=== PATIENT | male | born 1950 | race Caucasian/White ===

== ENCOUNTER 2016-09-01 10:26 | Day surgery (SDC) | payer BC, MEDICARE ==
[~2016-09-01 10:26] MED LIST: Buffered Lidocaine 1% SYR 3ML* 3 ML/SYR SYRINGE INTRADERM ONE; Cyclopentolate 1% OPTH.SOL* 2 ML BTL ONE; Flurbiprofen 0.03% OPTH.SOL* 2.5 ML BTL ONE; Lidocaine 1% MPF* 2 ML VIAL ONE; Lidocaine 2% EPI 1:200000 MPF* 20 ML VIAL ONE; Neomycin/Polymy/Dex OPTH.SUSP* MAXITROL 0.1% 5 ML ONE; Phenylephrine 2.5% OPTH.SOL* 2 ML BTL ONE; Povidone Iodine 5% OPTH* 30 ML BTL ONE; Proparacaine 0.5% OPHTH.SOL* 15 ML BTL ONE; acetaZOLAMIDE TAB* 250 MG ONE
[2016-09-01] MEDS ORDERED: Midazolam* 1 MG/ML 2 ML VIAL (2 MG) ONE ×2 (13:56→13:59)
[2016-09-01 15:13] VITALS: BP 139/58
--- NOTE | 2016-09-02 04:27 | OP ---
DATE OF OPERATION: 09/01/16 [facility] DATE OF : 46 SURGEON: Fredrick Benedict MD PREOPERATIVE DIAGNOSIS: Cataract, right eye. POSTOPERATIVE DIAGNOSIS: Cataract, right eye. OPERATIVE PROCEDURE: Phacoemulsification, right eye with IOL. DESCRIPTION OF PROCEDURE: The patient was brought to the operating room after being given 1/2% Alcaine with epinephrine drops in the preoperative area. The eye was prepped and draped in the usual sterile fashion. Sterile drape and eyelid speculum were placed. Again, topical 1/2% Alcaine with epinephrine was given. A paracentesis incision was made at the 9 o'clock position with the No.75 blade. Clear cornea incision 2.2 x 2.2-mm was created at the 12 o'clock position starting at the anterior limbus using the 2.2-mm keratome. The anterior chamber was irrigated with 0.4 mL of 1% non-preservative intracameral lidocaine and filled with DisCoVisc. A capsulorrhexis was completed using the cystotome and the Utrata forceps. Hydrodissection was performed with balanced salt solution. The lens nucleus was removed with the Phacoemulsification handpiece without incident. Cortex was removed with the irrigation-aspiration handpiece. The capsular bag was re-inflated using DisCoVisc and an [id number] implant was inserted with the shooter and oriented to the 179-degree meridian. Horizontal reference reilly were made with the patient in the preoperative area in a seated position. The irrigation-aspiration handpiece was used to remove all residual DisCoVisc. The eye was refilled with balanced salt solution and the wound checked and found to be watertight. Topical Maxitrol drops were given. [id number]/[facility] #: [id number] MTDD
== END 2016-09-01 14:32 | disposition home or self-care (01) ==
LOC: OREAST 10:26
PROVIDERS: ATTEND Specialist
DX: H25.12 Age-related nuclear cataract, left eye (principal); E11.3293 Type 2 diabetes mellitus with mild nonproliferative diabetic retinopathy without macular edema, bilateral; Z79.4 Long term (current) use of insulin; Z87.891 Personal history of nicotine dependence; J45.909 Unspecified asthma, uncomplicated; Z68.34 Body mass index [BMI] 34.0-34.9, adult
CPT/HCPCS: A9270-GY; J2250; V2787

== ENCOUNTER → 2016-09-22 06:45 | Day surgery (SDC) | payer BC, MEDICARE ==
[~2016-09-22 06:45] MED LIST changes: +Acetaminophen TAB* 325 MG PO PRN; -Buffered Lidocaine 1% SYR 3ML* 3 ML/SYR SYRINGE INTRADERM ONE; +Buffered Lidocaine 1% SYRIN* 3 ML/SYR SYRINGE INTRADERM ONE; +Midazolam* 1 MG/ML 2 ML VIAL (2 MG) ONE
[2016-09-22 09:02] VITALS: BP 133/60
--- NOTE | 2016-09-22 16:18 | OP ---
DATE OF OPERATION: 09/22/16 [facility] DATE OF : 46 SURGEON: Fredrick Benedict M.D. PREOPERATIVE DIAGNOSIS: Cataract, left eye. POSTOPERATIVE DIAGNOSIS: Cataract, left eye. OPERATIVE PROCEDURE: Phacoemulsification, left eye with IOL. DESCRIPTION OF PROCEDURE: The patient was brought to the operating room after being given 1/2% Alcaine with epinephrine drops in the preoperative area. The eye was prepped and draped in the usual sterile fashion. Sterile drape and eyelid speculum were placed. Again, topical 1/2% Alcaine with epinephrine was given. A paracentesis incision was made at the 3 o'clock position with the No.75 blade. Clear cornea incision 2.2 x 2.2-mm was created at the 6 o'clock position starting at the anterior limbus using the 2.2-mm keratome. The anterior chamber was irrigated with 0.4 mL of 1% non-preservative intracameral lidocaine and filled with DisCoVisc. A capsulorrhexis was completed using the cystotome and the Utrata forceps. Hydrodissection was performed with balanced salt solution. The lens nucleus was removed with the Phacoemulsification handpiece without incident. Cortex was removed with the irrigation-aspiration handpiece. The capsular bag was re-inflated using DisCoVisc and an [id number] implant was inserted with the shooter oriented to the 0-degree meridian. The irrigation-aspiration handpiece was used to remove all residual DisCoVisc. The eye was refilled with balanced salt solution and the wound checked and found to be watertight. Topical Maxitrol drops were given. [id number]/[facility] #: [id number] [facility]
== END | disposition home or self-care (01) ==
LOC: OREAST 06:45
PROVIDERS: ATTEND Specialist
DX: H25.12 Age-related nuclear cataract, left eye (principal); E11.3293 Type 2 diabetes mellitus with mild nonproliferative diabetic retinopathy without macular edema, bilateral; Z87.891 Personal history of nicotine dependence; I10 Essential (primary) hypertension; R00.2 Palpitations; J45.909 Unspecified asthma, uncomplicated; G47.33 Obstructive sleep apnea (adult) (pediatric)
CPT/HCPCS: 36415; 86803; J2250; V2787

== ENCOUNTER 2016-10-07 12:21 | Emergency (ER) | payer BC, MEDICARE ==
[2016-10-07 13:17] VITALS: BP 156/67
[2016-10-07] MEDS ORDERED: DOXYcycline CAP(*) 100 MG PO ONE (13:27)
--- NOTE | 2016-10-07 13:35 | UC ---
Skin Complaint HPI - HPI Summary HPI Summary: Noticed spot on LUE near axilla 2 days ago, today realized it was a tick and poured H2O2 on it. Slight redness around. - History of Current Complaint Hx Obtained From: Patient Onset/Duration: Gradual Onset, Lasting Days Timing: Constant Onset Severity: Mild Current Severity: Mild Location: Discrete Character: Redness Aggravating: Nothing Alleviating: Nothing Related History: Possible Reaction to: Insect <Mary Johnson - Last Filed: 10/07/16 13:30> <Santo Sewell - Last Filed: 10/07/16 13:55> - History of Current Complaint Chief Complaint: UCSkin Time Seen by Provider: 10/07/16 13:20 Stated Complaint: RED AREA ON ARM - Allergy/Home Medications Allergies/Adverse Reactions: Allergies Allergy/AdvReac Type Severity Reaction Status Date / Time Cephalexin [From Keflex] Allergy Itching Verified 09/22/16 06:59 Latex Allergy Rash Verified 09/22/16 06:59 Tomato Allergy Unknown Verified 09/22/16 06:59 Reaction Details hay fever Allergy Unknown Uncoded 09/22/16 06:59 Reaction Details Review of Systems Constitutional: Negative Skin: Other - tick Eyes: Negative ENT: Negative Respiratory: Negative Cardiovascular: Negative Gastrointestinal: Negative Genitourinary: Negative Motor: Negative Neurovascular: Negative Musculoskeletal: Negative Neurological: Negative Psychological: Negative All Other Systems Reviewed And Are Negative: Yes <Mary Johnson - Last Filed: 10/07/16 13:30> PMH/Surg Hx/FS Hx/Imm Hx Endocrine History Of: Reports: Diabetes - type II diagnoses about 15 yrs ago, uses medication Cardiovascular History Of: Reports: Hypertension - uses medication Denies: Pacemaker/ICD, Myocardial Infarction Respiratory History Of: Reports: Asthma - uses medication GI/ History Of: Denies: Renal Disease - Surgical History Surgical History: Yes Surgery Procedure, Year, and Place: 04/30 [facility] [place], [facility] [place], 10/[place] [facility] [place], [facility] [place]URP, 04/05 [facility] [place], 07/08 [facility] [place], previous colonoscopies w/polyp removal- SHAZIA REMOVED-PRECANCEROUS SPOTS ON FOREARM REMOVED. VASECTOMY - Family History Known Family History: Positive: Hypertension - Social History Lives: With Family Alcohol Use: Daily Alcohol Amount: 1 TO 2 DRINKS Substance Use Type: None Smoking Status (MU): Never Smoked Tobacco When Did the Patient Quit Smoking/Using Tobacco: 12/03/78 <Mary Johnson - Last Filed: 10/07/16 13:30> Physical Exam Triage Information Reviewed: Yes Appearance: Well-Appearing, No Pain Distress, Well-Nourished Vital Signs: Initial Vital Signs Temp 97.9 F 10/07/16 13:14 Pulse 67 10/07/16 13:14 Resp 18 10/07/16 13:14 BP 156/67 10/07/16 13:14 Pulse Ox 97 10/07/16 13:14 Vital Signs Reviewed: Yes Eye Exam: Normal Eyes: Positive: Conjunctiva Clear ENT Exam: Normal ENT: Positive: Normal ENT inspection, Hearing grossly normal, Pharynx normal, TMs normal Dental Exam: Normal Neck exam: Normal Neck: Positive: Supple, Nontender, No Lymphadenopathy Respiratory Exam: Normal Respiratory: Positive: Chest non-tender, Lungs clear, Normal breath sounds, No respiratory distress, No accessory muscle use Cardiovascular Exam: Normal Cardiovascular: Positive: RRR, No Murmur Musculoskeletal Exam: Normal Musculoskeletal: Positive: ROM Intact Neurological Exam: Normal Neurological: Positive: Alert Psychological Exam: Normal Skin Exam: Other - partial tick visible, removed with tick twisters. Erythema approx 3cm diameter around typical bite appearance. No streaking. I believe this redness is reactive erythema and not due to early, localized Lyme <Mary Johnson - Last Filed: 10/07/16 13:30> Vital Signs: Initial Vital Signs Temp 97.9 F 10/07/16 13:14 Pulse 67 10/07/16 13:14 Resp 18 10/07/16 13:14 BP 156/67 10/07/16 13:14 Pulse Ox 97 10/07/16 13:14 <Santo Sewell - Last Filed: 10/07/16 13:55> Course/Dx - Diagnoses Provider Diagnoses: L upper arm tick bite, tick removal <Mary Johnson - Last Filed: 10/07/16 13:30> Discharge <Mary Johnson - Last Filed: 10/07/16 13:30> <Santo Sewell - Last Filed: 10/07/16 13:55> - Discharge Plan Condition: Stable Disposition: HOME Patient Education Materials: Tick Bite (ED) Referrals: Raj Lofton MD [Primary Care Provider] - Additional Instructions: As we discussed, if the red area on your arm is still spreading after 48 hours, please get me the message on Tuesday after noon. If it is growing, I will treat you for Lyme infection with 2 weeks of antibiotics. TICK BITE: You have been bitten by a tick. Once the tick is removed, these "bites" usually cause no problems. Tick fever, tick paralysis, [place] Spotted fever, and Lyme disease are uncommon -- but you should mention this tick bite to your doctor if you develop unusual symptoms in the next several weeks. If you develop any of the following, please see your physician promptly: (1) Fever, chills, or generalized malaise associated with a headache. (2) A red round area at the site of the bite (or elsewhere) (3) Joint pain, joint swelling or generalized weakness. (4) Redness, swelling, or drainage at the site of the bite. Check yourself, your children and your pets for ticks whenever you've been in an area where ticks live. To remove a tick, grasp it firmly with some tweezers or a string in a slipknot as close to its head as possible and pull it steadily. Ticks do not have a typical "head" attached to their body. There are mouth parts sticking out which they use to feed. If there are mouth parts left behind in the wound there is NO increased risk of Lyme infection; however, the chances of a bacterial skin infection (cellulitis) are higher. If mouth parts remain after tick removal, the best thing to do is apply warm soaks to the area 3-4 times per day to encourage the skin to expel the foreign material. DOXYCYCLINE: Doxycycline (Vibramycin, Doryx) is an antibiotic of the tetracycline family. This type of drug is useful for infections of the respiratory tract and genital tract, and is sometimes used for intestinal infections. Unlike most tetracyclines, doxycycline can be taken with food. It is longer acting, and (usually) less prone to side effects than regular tetracycline. Tetracycline antibiotics can stain immature teeth and SHOULD NOT BE TAKEN BY CHILDREN, NURSING MOTHERS, OR WOMEN. Tetracyclines can make you more prone to sunburn. Abdominal cramping, nausea, and diarrhea are occasional side effects. Women may experience vaginal yeast infections. Call the doctor at once if you develop hives, itching, shortness of breath , or lightheadedness. WHEN A TICK IS NOT ENGORGED AND HAS BEEN ON LESS THAN 24 HOURS - THE RISK FOR LYME IS NEGLIGIBLE. YOU CAN REMOVE THE TICK AND OBSERVE THE AREA ON YOUR OWN. FOLLOW-UP CARE: You should contact your private physician for follow-up care if you develop spreading redness near the site of the bite or on any other areas of the body. If you are unable to get a timely appointment, or if you are worsening, call us or return for re-evaluation.
== END 2016-10-07 14:00 | disposition home or self-care (01) ==
LOC: UCEAST 12:21
DX: S40.862A Insect bite (nonvenomous) of left upper arm, initial encounter (principal); W57.XXXA Bitten or stung by nonvenomous insect and other nonvenomous arthropods, initial encounter; Y93.9 Activity, unspecified; Y99.9 Unspecified external cause status; E11.9 Type 2 diabetes mellitus without complications; I10 Essential (primary) hypertension; J45.909 Unspecified asthma, uncomplicated; Z88.1 Allergy status to other antibiotic agents; Z91.040 Latex allergy status; Z91.018 Allergy to other foods; Z91.048 Other nonmedicinal substance allergy status
CPT/HCPCS: 99212; A9270-GY; G0463

== ENCOUNTER 2017-05-19 08:55 | Emergency (ER) | payer MEDICARE ==
[2017-05-19 09:12] VITALS: BP 192/90
--- NOTE | 2017-05-19 11:01 | UC ---
Head Injury HPI - HPI Summary HPI Summary: 67 Y/O male presents S/P ground level fall this AM. States was walking and fell face first. Denies LOC. Periorbital bruises, bruising and laceration to bridge of nose. Neurologically intact. Patient with elevated blood pressure 192/90, states has not taken any medications today and does have a diagnosis of HTN. Discussed need to take medications as directed. Denies headache, dizziness, no apparent confusion. Reviewed family history which is significant for heart disease and diabetes. Discussed with Arden need for CT scan of head due to significant periorbital bruising and nasal injury. Advised that transfer via ambulance is advised. Refuses transfer to ED via ambulance but states he will present to ED. AMA form signed. - History Of Current Complaint Chief Complaint: UCLaceration Stated Complaint: NASAL LAC AND INJURY Time Seen by Provider: 05/19/17 09:30 Hx Obtained From: Patient Onset/Duration: Sudden Onset Severity Currently: Mild Severity Initially: Mild Pain Intensity: 3 Pain Scale Used: Adult Non Verbal - Allergies/Home Medications Allergies/Adverse Reactions: Allergies Allergy/AdvReac Type Severity Reaction Status Date / Time Cephalexin [From Keflex] Allergy Itching Verified 05/19/17 09:12 Latex Allergy Rash Verified 05/19/17 09:12 Tomato Allergy Unknown Verified 05/19/17 09:12 Reaction Details hay fever Allergy Unknown Uncoded 05/19/17 09:12 Reaction Details Home Medications: Home Medications Insulin Glargine (Nf) [Toujeo Solostar Pen (NF)] 47 units SUBCON DAILY 05/19/17 [History Confirmed 05/19/17] Losartan TAB* [Cozaar TAB*] 25 mg PO DAILY 05/19/17 [History Confirmed 05/19/17] PMH/Surg Hx/FS Hx/Imm Hx Previously Healthy: Yes Endocrine History: Diabetes Cardiovascular History: Hypertension - Surgical History Surgical History: Yes Surgery Procedure, Year, and Place: 04/30 [facility] [place] bladder tumor, [facility] [place], 10/31 [facility] [place] bladder tumor, [facility] [place] cystoscopy & TURP, 04/05 [facility] [place] & [place]URP, 07/08 [facility] [place] & TURP, previous colonoscopies w/polyp removal- SHAZIA REMOVED-PRECANCEROUS SPOTS ON FOREARM REMOVED. VASECTOMY. Bilateral Cataract Surgery - Family History Known Family History: Positive: Hypertension - Social History Alcohol Use: Daily Alcohol Amount: 1 TO 2 DRINKS Substance Use Type: None Smoking Status (MU): Never Smoked Tobacco When Did the Patient Quit Smoking/Using Tobacco: 12/03/78 - Immunization History Most Recent Influenza Vaccination: 03/2017 Most Recent Tetanus Shot: Unknown Review of Systems Constitutional: Negative Skin: Bruising - Periorbital and nasal Eyes: Negative ENT: Negative Respiratory: Negative Cardiovascular: Negative Gastrointestinal: Negative Genitourinary: Negative Motor: Negative Neurovascular: Negative Musculoskeletal: Negative Neurological: Negative Psychological: Negative Is Patient Immunocompromised?: No All Other Systems Reviewed And Are Negative: Yes Physical Exam Triage Information Reviewed: Yes Appearance: Well-Appearing Vital Signs: Initial Vital Signs Temp 97.9 F 05/19/17 09:07 Pulse 65 05/19/17 09:07 Resp 18 05/19/17 09:07 BP 192/90 05/19/17 09:07 Pulse Ox 98 05/19/17 09:07 Vital Signs Reviewed: Yes Eye Exam: Normal ENT Exam: Normal Neck exam: Normal Neck: Positive: Nontender Neurological Exam: Normal Neurological: Positive: Alert Psychological Exam: Normal Skin: Positive: Other - Laceration to bridge of nose Head Injury Course/Dx - Differential Dx/Diagnosis Differential Diagnosis/HQI/PQRI: Contusion, Nasal Fracture, Orbital Fracture Provider Diagnoses: fall with injury to nose, head trauma Discharge - Discharge Plan Condition: Stable Disposition: AGAINST MEDICAL ADVICE Referrals: Raj Lofton MD [Primary Care Provider] -
== END 2017-05-19 09:40 | disposition left against medical advice (07) ==
LOC: UCEAST 08:55
DX: S09.90XA Unspecified injury of head, initial encounter (principal); S01.21XA Laceration without foreign body of nose, initial encounter; W19.XXXA Unspecified fall, initial encounter; Y93.9 Activity, unspecified; Y92.9 Unspecified place or not applicable; Y99.9 Unspecified external cause status; I10 Essential (primary) hypertension; Z72.89 Other problems related to lifestyle
CPT/HCPCS: 99212; G0463

== ENCOUNTER 2017-05-19 09:57 | Emergency (ER) | payer MEDICARE ==
[2017-05-19] MEDS ORDERED: Tetan/Diph/Pertus SYR(Tdap)* 0.5 ML SYR(BOOSTRIX) use SYR IM ONE (10:17)
--- NOTE | 2017-05-19 10:40 | RAD ---
INDICATION: Facial trauma after slip and fall COMPARISON: None. TECHNIQUE: Contiguous axial sections of the brain were obtained from the skull base to the vertex without contrast. FINDINGS: The ventricles, cisterns and sulci are within normal limits. The toribio-white matter differentiation is adequately maintained and there is no sulcal effacement. No significant focal abnormality or mass effect is present. There is no evidence for intracranial hemorrhage. There is coarse calcification at the left vertebral artery as well as mild calcified atherosclerosis at the bilateral petrous carotid arteries. No significant focal osseous abnormality is present. The visualized portion of the paranasal sinuses and mastoid air cells appear clear. IMPRESSION: No calvarial fracture or acute intracranial hemorrhage.
[2017-05-19 11:36] VITALS: BP 168/71
--- NOTE | 2017-05-19 12:59 | ED ---
Bruce Ortiz SooYoung, scribed for Richar Parmar MD on 05/19/17 at 1020 . Head Injury - HPI Summary HPI Summary: A 67 y/o M referred from [facility] [place] presents to ED after fall onset last night. Pt was walking his dog when he slipped and landed face forward on [place]. Associated sx: mild ARENAS onset at 0030, abrasion to nose bridge without active bleeding. Denies: LOC. Advil has helped alleviate the symptoms. Pt takes daily baby aspirin, but did not take it today. Date of last tetanus is unknown. - History Of Current Complaint Chief Complaint: EDHeadInjury Stated Complaint: SLIPPED/FELL, FACIAL INJURY, COMING FROM [facility] Time Seen by Provider: 05/19/17 10:09 Hx Obtained From: Patient Mechanism Of Injury: Fall From A Standing Position Onset/Duration: Started Hours Ago - last night, Still Present Onset of Pain: Immediate, Post Accident Severity Currently: None Severity Initially: Mild Pain Intensity: 0 Pain Scale Used: 0-10 Numeric Alleviating Factor(s): OTC Medications` Associated Signs And Symptoms: Other: - abrasion to nose bridge - Allergies/Home Medications Allergies/Adverse Reactions: Allergies Allergy/AdvReac Type Severity Reaction Status Date / Time Cephalexin [From Keflex] Allergy Itching Verified 05/19/17 09:12 Latex Allergy Rash Verified 05/19/17 09:12 Tomato Allergy Unknown Verified 05/19/17 09:12 Reaction Details hay fever Allergy Unknown Uncoded 05/19/17 09:12 Reaction Details PMH/Surg Hx/FS Hx/Imm Hx Previously Healthy: No Endocrine/Hematology History: Reports: Hx Diabetes Denies: Hx Anticoagulant Therapy - aspirin Cardiovascular History: Reports: Hx Angina, Hx Hypercholesterolemia, Hx Hypertension Denies: Hx Coronary Artery Disease, Hx Myocardial Infarction, Hx Pacemaker/ ICD, Hx Valvular Heart Disease Respiratory History: Reports: Hx Asthma, Hx Sleep Apnea, Other Respiratory Problems/Disorders - hoarseness in throat, chronic for last year, having endoscopy 08/30/16 GI History: Reports: Other GI Disorders - colon polyps History: Reports: Hx Benign Prostatic Hyperplasia, Other Problems/ Disorders - bladder cancer, hematuria, bladder lesions Denies: Hx Renal Disease Musculoskeletal History: Reports: Hx Arthritis - neck, Hx Back Problems - lumbago, Other Musculoskeletal History - siatic nerve problem last year Denies: Hx Rheumatoid Arthritis, Hx Osteoporosis, Hx Scoliosis Sensory History: Reports: Hx Cataracts, Hx Contacts or Glasses - wears glasses Denies: Hx Hearing Aid Opthamlomology History: Reports: Hx Cataracts, Hx Contacts or Glasses - wears glasses Neurological History: Denies: Hx Headaches, Other Neuro Impairments/Disorders Psychiatric History: Denies: Hx Panic Disorder - Cancer History Cancer Type, Location and Year: Bladder CA Hx Chemotherapy: Yes - unsure if Chemo was used for Bladder CA - Surgical History Surgery Procedure, Year, and Place: 04/30 [facility] [place] & bladder tumor, [facility] [place], 10/31 [facility] [place] tumor, [facility] [place] & TURP, 04/05 [facility] [place]P, 07/08 [facility] [place]URP, previous colonoscopies w/polyp removal- SHAZIA REMOVED-PRECANCEROUS SPOTS ON FOREARM REMOVED. VASECTOMY. Bilateral Cataract Surgery Hx Anesthesia Reactions: No Infectious Disease History: No Infectious Disease History: Denies: Traveled Outside the in Last 30 Days - Family History Known Family History: Positive: Hypertension - Social History Occupation: Retired Lives: With Family Alcohol Use: Daily Alcohol Amount: 1 TO 2 DRINKS Hx Substance Use: No Substance Use Type: Reports: None Hx Tobacco Use: No Smoking Status (MU): Never Smoked Tobacco Review of Systems Positive: Other - abrasion to nose bridge, not actively bleeding Neurological: Other - neg: LOC All Other Systems Reviewed And Are Negative: Yes Physical Exam - Summary Physical Exam Summary: Appearance: The patient is well-nourished in no acute distress and in no acute pain. Skin: The skin is warm and dry and skin color reflects adequate perfusion. Pt has an abrasion with crusted, dried blood on his nose and a small amount of L orbital hematoma. HEENT: The head is normocephalic and atraumatic. The pupils are equal and reactive. The conjunctivae are clear and without drainage. Nares are patent and without drainage. Mouth reveals moist mucous membranes and the throat is without erythema and exudate. The external ears are intact. The ear canals are patent and without drainage. The tympanic membranes are intact. Neck: the neck is supple with full range of motion and non-tender. There are no carotid bruits. There is no neck vein distension. Respiratory: Chest is non-tender. Lungs are clear to auscultation and breath sounds are symmetrical and equal. Cardiovascular: Heart is regular rate and rhythm. There is no murmur or rub auscultated. There is no peripheral edema and pulses are symmetrical and equal. Abdomen: The abdomen is soft and non-tender. There are normal bowel sounds heard in all four quadrants and there is no organomegaly palpated. Musculoskeletal: There is no back tenderness noted. Extremities are non-tender with full range of motion. There is good capillary refill. There is no peripheral edema or calf tenderness elicited. Neurological: Patient is alert and oriented to person, place and time. The patient has symmetrical motor strength in all four extremities. Cranial nerves are grossly intact. Deep tendon reflexes are symmetrical and equal in all four extremities. Psychiatric: The patient has an appropriate affect and does not exhibit any anxiety or depression. Triage Information Reviewed: Yes Vital Signs On Initial Exam: Initial Vitals Temp Pulse Resp BP Pulse Ox 97.1 F 59 18 197/69 99 05/19/17 09:58 05/19/17 09:58 05/19/17 09:58 05/19/17 09:58 05/19/17 09:58 Vital Signs Reviewed: Yes - Alloy Coma Scale Coma Scale Total: 15 Procedures - Laceration/Wound Repair 1 Location: face Suture Type: Nylon - 6.0 Number of Sutures: 3 Diagnostics - Vital Signs Vital Signs Temp Pulse Resp BP Pulse Ox 05/19/17 09:58 97.1 F 59 18 197/69 99 - Laboratory Lab Statement: Any lab studies that have been ordered have been reviewed, and results considered in the medical decision making process. - CT BRAIN CT Interpretation: No Acute Changes - IMPRESSION: No calvarial fracture or acute intracranial hemorrhage. ED physician has read this radiology report and agrees. CT Interpretation Completed By: Radiologist Re-Evaluation - Re-Evaluation 1 Re-Evaluation Time: 10:57 Change: Unchanged Comment: Discussing CT results with pt. Head Injury Course/Dx Course Of Treatment: Mr. Noble slipped last night and fell face first onto pavement he has a compression lac to the bridge of his nose and is otherwise asymptomatic although he had a ARENAS last night. CT is negative and I repaired his 1 cm nasal lac with 3 stiches. - Diagnoses Provider Diagnoses: Nasal laceration, Head injury Discharge - Discharge Plan Condition: Stable Disposition: HOME Patient Education Materials: Care For Your Stitches (ED), Head Injury (ED) Referrals: Raj Lofton MD [Primary Care Provider] - Additional Instructions: Have the sutures removed in 3-5 days by your primary care provider, at the Urgent Care or ED. Please return to the emergency department if you experience new or worsening symptoms. The documentation as recorded by the Bruce degroot SooYoung accurately reflects the service I personally performed and the decisions made by me, Richar Parmar MD.
== END 2017-05-19 11:37 | disposition home or self-care (01) ==
LOC: ED 09:57
DX: S01.21XA Laceration without foreign body of nose, initial encounter (principal); S09.90XA Unspecified injury of head, initial encounter; W19.XXXA Unspecified fall, initial encounter; Y93.9 Activity, unspecified; Y92.9 Unspecified place or not applicable
CPT/HCPCS: 12011; 70450; 90471; 90715; 99282

== ENCOUNTER 2017-05-24 10:35 | Emergency (ER) | payer MEDICARE ==
[2017-05-24 10:50] VITALS: BP 162/67
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
== END 2017-05-24 11:45 | disposition home or self-care (01) ==
LOC: UCEAST 10:35
DX: S01.21XD Laceration without foreign body of nose, subsequent encounter (principal); W01.0XXD Fall on same level from slipping, tripping and stumbling without subsequent striking against object, subsequent encounter; I10 Essential (primary) hypertension; E11.9 Type 2 diabetes mellitus without complications; Z85.51 Personal history of malignant neoplasm of bladder; Z88.1 Allergy status to other antibiotic agents; Z87.891 Personal history of nicotine dependence
CPT/HCPCS: 99212; G0463

== ENCOUNTER 2018-01-01 08:55 | Emergency (ER) | payer MEDICARE ==
[2018-01-01 09:11] VITALS: BP 153/77
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
[2018-01-01] MEDS ORDERED: Silver Sulfadiazine 1%* 20 GM TOPICAL ONE (09:49)
== END 2018-01-01 10:09 | disposition home or self-care (01) ==
LOC: UCEAST 08:55
DX: T24.202A Burn of second degree of unspecified site of left lower limb, except ankle and foot, initial encounter (principal); Z88.1 Allergy status to other antibiotic agents; I10 Essential (primary) hypertension; Z91.040 Latex allergy status; Z87.891 Personal history of nicotine dependence; Z91.018 Allergy to other foods; Z91.048 Other nonmedicinal substance allergy status; E11.9 Type 2 diabetes mellitus without complications; X19.XXXA Contact with other heat and hot substances, initial encounter; Y92.9 Unspecified place or not applicable
CPT/HCPCS: 99212; A9270-GY; G0463

== ENCOUNTER 2019-08-08 10:08 | Emergency (ER) | payer MEDICARE ==
--- NOTE | 2019-08-08 10:22 | UC ---
Cardiac HPI - HPI Summary HPI Summary: PATIENT PRESENTS WITH 2-3 DAYS OF INTERMITTENT LOWER STERNAL CHEST PRESSURE. NOT WORSE WITH EXERTION. DOES NOT SEEM TO IMPROVE WITH REST. PATIENT DENIES SHORTNESS OF BREATH, NAUSEA, SWEATS. - History of Current Complaint Stated Complaint: CHEST PRESSURE Time Seen by Provider: 08/08/19 10:12 Hx Obtained From: Patient Onset/Duration: Lasting Days, Still Present Initial Severity: Moderate Current Severity: Moderate Chest Pain Location: Lower Sternal Character: Pressure/Squeezing Aggravating Factor(s): Nothing Alleviating Factor(s): Spontaneous Resolution Associated Signs & Symptoms: Positive: Chest Pain. Negative: Numbness, Tingling , Dizziness, SOB, Fever, Nausea/Vomiting - Allergy/Home Medications Allergies/Adverse Reactions: Allergies Allergy/AdvReac Type Severity Reaction Status Date / Time cephalexin Allergy Itching Verified 01/01/18 09:12 latex Allergy Unknown Verified 01/01/18 09:12 Reaction Details tomato Allergy GI Upset Verified 01/01/18 09:12 hay fever Allergy Unknown Uncoded 05/24/17 10:41 Reaction Details PMH/Surg Hx/FS Hx/Imm Hx Endocrine History: Diabetes, Dyslipidemia Cardiovascular History: Hypertension Other Cancer History: BLADDER CANCER Other History Of: Negative For: Anticoagulant Therapy - aspirin - Surgical History Surgical History: Yes Surgery Procedure, Year, and Place: [place] [facility] [place], [facility] [place], 10[place] [facility] [place], [facility] [place], 04/05 [facility] [place], 07/08 [facility] [place], previous colonoscopies w/polyp removal- SHAZIA REMOVED-PRECANCEROUS SPOTS ON FOREARM REMOVED. VASECTOMY. Bilateral Cataract Surgery - Family History Known Family History: Positive: Cardiac Disease, Hypertension - Social History Alcohol Use: Daily Alcohol Amount: 1 TO 2 DRINKS Substance Use Type: None Smoking Status (MU): Former Smoker When Did the Patient Quit Smoking/Using Tobacco: 12/03/78 - Immunization History Most Recent Influenza Vaccination: 03/2017 Most Recent Tetanus Shot: 2017 Vaccination Up to Date: Yes Review of Systems All Other Systems Reviewed And Are Negative: Yes Constitutional: Positive: Negative Respiratory: Positive: Negative Cardiovascular: Positive: Chest Pain Gastrointestinal: Positive: Negative Neurological/Mental Status: Positive: Negative Physical Exam Triage Information Reviewed: Yes Appearance: Well-Appearing, No Pain Distress, Well-Nourished, Obese Vital Signs Reviewed: Yes Eyes: Positive: Conjunctiva Clear ENT: Positive: Hearing grossly normal Neck: Positive: Supple Respiratory Exam: Normal Cardiovascular: Positive: Pulses Normal Abdomen Description: Positive: Soft Musculoskeletal: Positive: No Edema Neurological: Positive: Alert Psychological: Positive: Age Appropriate Behavior Skin: Negative: Rashes Diagnostics - EKG Cardiac Rate: NL - 86BPM. VENTRICULAR BIGEMINY - Assessment/Plan Course Of Treatment: PT NEEDS HIGHER LEVEL OF SERVICE THAN WHAT IS AVAILABLE IN THE [facility] [place] [facility] [place] [facility] [place]. - Clinical Impression Provider Diagnosis: Chest pain - Physician Notifications Discussed Patient Care With: Grace Vega Time Discussed With Above Provider: 10:25 Instructed by Provider To: MD Will See In ED Discharge ED - Sign-Out/Discharge Documenting (check all that apply): Patient Departure All imaging exams completed and their final reports reviewed: No Studies - Discharge Plan Condition: Stable Disposition: TRANS HIGHER LVL OF CARE FAC Referrals: Raj Lofton MD [Primary Care Provider] - - Billing Disposition and Condition Condition: STABLE Disposition: Trans Higher Lvl of Care Fac
[2019-08-08 10:27] VITALS: BP 173/77
== END 2019-08-08 10:43 | disposition short-term general hospital (02) ==
LOC: UCEAST 10:08
DX: R07.9 Chest pain, unspecified (principal); E66.9 Obesity, unspecified; I10 Essential (primary) hypertension; E11.9 Type 2 diabetes mellitus without complications; Z85.51 Personal history of malignant neoplasm of bladder; Z87.891 Personal history of nicotine dependence; Z88.1 Allergy status to other antibiotic agents; Z91.040 Latex allergy status; Z91.018 Allergy to other foods; Z91.09 Other allergy status, other than to drugs and biological substances
CPT/HCPCS: 93005; 99213; G0463

== ENCOUNTER 2019-08-08 10:54 | Emergency (ER) | payer MEDICARE ==
--- NOTE | 2019-08-08 11:01 | ED ---
HPI Chest Pain - HPI Summary HPI Summary: 69 year old M brought in by EMS from [facility] to [facility] complains of intermittent episodes of chest pressure, heart fluttering, and heart palpitations, each episode lasting for varying amounts of time, starting Tuesday08/04/2019. Patient states that the chest pressure radiated into his left shoulder and left upper arm today. He called his primary care provider earlier today and was referred to [facility]. No nausea/vomiting/diarrhea, abdominal pain, shortness of breath, dizziness, diaphoresis, pain or swelling in bilateral calves. He states his chest pressure is not painful, just uncomfortable. The patient rates the pain 0/10 in severity. Symptoms aggravated by nothing. Patient states his symptoms are not aggravated by exertion or taking a deep breath. Symptoms alleviated by nothing. Medications reviewed. Allergies noted. No hx stents placement. Hx diabetes. Hx hypertension. No hx DVT or PE. Former smoker. Patient states he has had intermittent cough and congestion since 2018. Hx asthma. No hx COPD. Patient states he hasn't consumed more caffeine than usual recently. He admits to drinking alcohol 4-6 times each week. - History of Current Complaint Hx Obtained From: Patient Onset/Duration: Started Days Ago - 08/04/2019, Still Present Timing: Intermittent Current Severity: None Pain Intensity: 0 Pain Scale Used: 0-10 Numeric Chest Pain Radiates: Yes Chest Pain Radiates To:: Shoulder - Left, Arm - Left upper Character: Fluttering, Pressure/Squeezing, Other: - palpitations Aggravating Factor(s): Nothing Alleviating Factor(s): Nothing Associated Signs and Symptoms: Positive: Negative - nausea/vomiting/diarrhea, abdominal pain, shortness of breath, dizziness, diaphoresis, pain or swelling in bilateral calves - Allergy/Home Medications Allergies/Adverse Reactions: Allergies Allergy/AdvReac Type Severity Reaction Status Date / Time cephalexin Allergy Itching Verified 01/01/18 09:12 latex Allergy Unknown Verified 01/01/18 09:12 Reaction Details tomato Allergy GI Upset Verified 01/01/18 09:12 hay fever Allergy Unknown Uncoded 05/24/17 10:41 Reaction Details Home Medications: Home Medications Atenolol/Chlorthalidone [Atenolol/Chlorthalidone 50-25 mg-] 0.5 tab PO DAILY 06/15 [History Confirmed 08/08/19] EPINEPHrine [Epipen] 0.3 mg IM ONCE PRN 08/08/19 [History Confirmed 08/08/19] Glipizide-Metformin 5-500mg 2 tab PO BID 08/08/19 [History Confirmed 08/08/19] Mometasone/Formoter 200/5 MDI* [Dulera 200/5 MDI*] 2 puff INH DAILY 08/08/19 [ History Confirmed 08/08/19] Omeprazole CAP (NF) [Prilosec CAP* 20 MG] 20 mg PO DAILY 08/08/19 [History Confirmed 08/08/19] SitaGLIPtin (NF) [Januvia (NF)] 100 mg PO DAILY 08/08/19 [History Confirmed 06/15] PMH/Surg Hx/FS Hx/Imm Hx Endocrine/Hematology History: Reports: Hx Diabetes Denies: Hx Anticoagulant Therapy - aspirin Cardiovascular History: Reports: Hx Angina, Hx Hypercholesterolemia, Hx Hypertension Denies: Hx Coronary Artery Disease, Hx Myocardial Infarction, Hx Pacemaker/ ICD, Hx Valvular Heart Disease Respiratory History: Reports: Hx Asthma, Hx Sleep Apnea, Other Respiratory Problems/Disorders - hoarseness in throat, chronic for last year, having endoscopy 08/30/16 GI History: Reports: Other GI Disorders - colon polyps History: Reports: Hx Benign Prostatic Hyperplasia, Other Problems/ Disorders - bladder cancer, hematuria, bladder lesions Denies: Hx Renal Disease Musculoskeletal History: Reports: Hx Arthritis - neck, Hx Back Problems - lumbago, Other Musculoskeletal History - siatic nerve problem last year Denies: Hx Rheumatoid Arthritis, Hx Osteoporosis, Hx Scoliosis Sensory History: Reports: Hx Cataracts, Hx Contacts or Glasses - wears glasses Denies: Hx Hearing Aid Opthamlomology History: Reports: Hx Cataracts, Hx Contacts or Glasses - wears glasses Neurological History: Denies: Hx Headaches, Other Neuro Impairments/Disorders Psychiatric History: Denies: Hx Panic Disorder - Cancer History Cancer Type, Location and Year: Bladder CA Hx Chemotherapy: Yes - unsure if Chemo was used for Bladder CA - Surgical History Surgery Procedure, Year, and Place[place] 04[place] [facility] [place] [facility] [place], 10[place] [facility] [place] [facility] [place], 04[place]05 [facility] [place], 07[place] [facility] [place], previous colonoscopies w/polyp removal- SHAZIA REMOVED-PRECANCEROUS SPOTS ON FOREARM REMOVED. VASECTOMY. Bilateral Cataract Surgery Hx Anesthesia Reactions: No - Family History Known Family History: Positive: Cardiac Disease, Hypertension - Social History Alcohol Use: Daily Alcohol Amount: 1 TO 2 DRINKS Hx Substance Use: No Substance Use Type: Reports: None Hx Tobacco Use: Yes Smoking Status (MU): Former Smoker Review of Systems Negative: Skin Diaphoresis Positive: Other - chest pressure Negative: Shortness Of Breath Negative: Abdominal Pain, Vomiting, Diarrhea, Nausea Musculoskeletal: Negative - swelling or pain in bilateral calves Neurological/Mental Status: Negative - Dizziness All Other Systems Reviewed And Are Negative: Yes Physical Exam - Summary Physical Exam Summary: Constitutional: Well-developed, Well-nourished, Alert. (-) Distressed Skin: Warm, Dry HENT: Normocephalic; Atraumatic Eyes: Conjunctiva normal Neck: Musculoskeletal ROM normal neck. (-) JVD, (-) Stridor, (-) Tracheal deviation Cardio: Rhythm irregular, rate normal, Heart sounds normal; Intact distal pulses ; The pedal pulses are 2+ and symmetric. Radial pulses are 2+ and symmetric. (- ) Murmur Pulmonary/Chest wall: Effort normal. (-) Respiratory distress, (-) Wheezes, (-) Rales Abd: Soft, (-) tenderness, (-) Distension, (-) Guarding, (-) Rebound Musculoskeletal: (-) Edema Lymph: (-) Cervical adenopathy Neuro: Alert, Oriented x3 Psych: Mood and affect Normal Triage Information Reviewed: Yes Vital Signs Reviewed: Yes Procedures - Sedation Patient Received Moderate/Deep Sedation with Procedure: No Diagnostics - Laboratory Result Diagrams: 08/08/19 11:11 08/08/19 11:11 Lab Statement: Any lab studies that have been ordered have been reviewed, and results considered in the medical decision making process. - Radiology CXR Radiology Interpretation Completed By: Radiologist Summary of Radiographic Findings: LEFT LOWER LOBE ATELECTASIS OR PLEURAL EFFUSION IS NOTED. ED physician has reviewed this report. CXR Radiology Interpretation Completed By: Radiologist Summary of Radiographic Findings: ELEVATED LEFT HEMIDIAPHRAGM, NO EVIDENCE FOR PLEURAL EFFUSION. ED physician has reviewed this report. - EKG 1059 Cardiac Rate: NL - 66 BPM EKG Rhythm: Sinus Rhythm EKG Comparison: Other - EKG from [facility] earlier today 08/08/2019 shows sinus rhythm 86 BPM with ventricular bigeminy pattern Summary of EKG Findings: No ischemic changes. ED physician has reviewed and interpreted this report Re-Evaluation - Re-Evaluation First Eval Re-Evaluation Time: 14:44 Comment: patient and family agree to discharge Chest Pain Course/Dx - Course Course Of Treatment: 69 y/o M brought in by EMS from [facility] complains of intermittent episodes of chest pressure, heart fluttering, and heart palpitations starting Tuesday08/04/2019. Patient states that the chest pressure radiated into his left shoulder and left upper arm today. He called his primary care provider earlier today and was referred to [facility]. No nausea/ vomiting/diarrhea, abdominal pain, shortness of breath, dizziness, diaphoresis, pain or swelling in bilateral calves. He states his chest pressure is not painful, just uncomfortable. Upon exam, patient has irregular rhythm. No murmur. Bloodwork results with no significant abnormalities except for anion 12 , BUN 26, creatinine 1.18, BUN/creatinine 22.0, glucose 201, magnesium 1.3. Serum alcohol <10. First troponin 0.01. Second troponin 0.01. An EKG shows sinus rhythm 66 BPM and no ischemic changes. EKG from [facility] earlier today 08/08/2019 shows sinus rhythm 86 BPM with ventricular bigeminy pattern. CXR shows LEFT LOWER LOBE ATELECTASIS OR PLEURAL EFFUSION IS NOTED. A second CXR shows ELEVATED LEFT HEMIDIAPHRAGM, NO EVIDENCE FOR PLEURAL EFFUSION. In the ED course, the patient was given normal saline fluids and magnesium. Discussed with Dr. Lawrence cardiology who recommends d/c home and f/u with her as outpatient for further testing. Patient will be discharged home with follow up from Dr. Lawrence tomorrow 08/09/2019. Patient was instructed to return to Emergency Department for new or worsening symptoms. Patient understands and is agreeable to this plan. - Diagnoses Provider Diagnoses: PVCs (premature ventricular contractions), Hypomagnesemia, Chest pain - Provider Notifications Discussed Care Of Patient With: Giovanna Lawrence Time Discussed With Above Provider: 14:39 Instructed by Provider To: Other - Dr. Howard hassan recommends d/c patient home and have him f/u as outpatient for further testing Discharge ED - Sign-Out/Discharge Documenting (check all that apply): Patient Departure - Discharge Plan Condition: Stable Disposition: HOME Patient Education Materials: Chest Pain (ED), Hypomagnesemia (ED), Premature Ventricular Contractions (ED) Referrals: Giovanna Lawrence MD [Medical Doctor] - 08/09/19 Additional Instructions: Follow up with Dr. Lawrence tomorrow 08/09/2019. Return to the Emergency Department for new or worsening symptoms. - Billing Disposition and Condition Condition: STABLE Disposition: Home - Attestation Statements Document Initiated by Scribe: Yes Documenting Scribe: Nancy Linares Provider For Whom Debbie is Documenting (Include Credential): Ravi Bella DO Scribe Attestation: Nancy Ortiz scribed for Ravi Bella DO on 08/08/19 at 1547. Scribe Documentation Reviewed: Yes Provider Attestation: The documentation as recorded by the Nancy degroot accurately reflects the service I personally performed and the decisions made by Ravi bray DO Status of Scribperi Document: Viewed
[2019-08-08] MEDS ORDERED: NS 0.9% 1000 ML** 1,000 ML IV ONE (11:04)
[2019-08-08 11:22] LABS: ABS Eosinophils 0.1 10^3/ul (0-0.6); ABS Lymphocytes 1.3 10^3/ul (1.0-4.8); ABS Monocytes 0.5 10^3/ul (0-0.8); ABS Neutrophils 4.6 10^3/ul (1.5-7.7); Eosinophil % 2.2 %; Hematocrit 44 % (42-52); Hemoglobin 15.1 g/dL (14.0-18.0); Lymphocyte % 19.2 %; Mean Corpuscular HGB Conc 34 g/dL (31-36); Mean Corpuscular Hemoglobin 30 pg (27-31); Mean Corpuscular Volume 89 fL (80-94); Mean Platelet Volume 8.2 fL (7.4-10.4); Platelet Count 164 10^3/uL (150-450); Red Cell Distribution Width 15 % (10-15); White Blood Count 6.6 10^3/uL (3.5-10.8)
[2019-08-08 11:37] LABS: Troponin I 0.01 ng/mL (<0.03)
[2019-08-08 11:48] LABS: ALT 16 U/L (7-52); AST 14 U/L (13-39); Albumin 4.4 g/dL (3.2-5.2); Albumin/Globulin Ratio 1.4 (1-3); Alkaline Phosphatase 45 U/L (34-104); Anion Gap 12 mmol/L (2-11); Blood Urea Nitrogen 26 mg/dL (6-24); CO2 Carbon Dioxide 28 mmol/L (22-32); Calcium 9.7 mg/dL (8.6-10.3); Chloride 102 mmol/L (101-111); EGFR African American 73.6 (>60); EGFR Non-African American 60.9 (>60); Globulin 3.1 g/dL (2-4); Glucose 201 mg/dL (70-100); Magnesium 1.3 mg/dL (1.9-2.7); Potassium 3.9 mmol/L (3.5-5.0); Sodium 142 mmol/L (135-145); Total Protein 7.5 g/dL (6.4-8.9)
[2019-08-08] MEDS ORDERED: Magnesium Sulfate 1 GM IV* 1 GM/100 ML BAG IV ONE (11:54)
[2019-08-08 12:03] LABS: TSH (Thyroid Stimulating Horm) 1.51 mcIU/mL (0.34-5.60)
[2019-08-08 12:34] LABS: Alcohol < 10 mg/dL (<10)
[2019-08-08 15:11] VITALS: BP 143/69
== END 2019-08-08 15:12 | disposition home or self-care (01) ==
LOC: ED 10:54
DX: I49.3 Ventricular premature depolarization (principal); E83.42 Hypomagnesemia; R07.89 Other chest pain; E11.9 Type 2 diabetes mellitus without complications; Z79.84 Long term (current) use of oral hypoglycemic drugs; Z79.4 Long term (current) use of insulin; I10 Essential (primary) hypertension; J45.909 Unspecified asthma, uncomplicated; Z79.899 Other long term (current) drug therapy; Z88.1 Allergy status to other antibiotic agents; Z91.040 Latex allergy status; Z91.018 Allergy to other foods; Z91.09 Other allergy status, other than to drugs and biological substances; Z87.891 Personal history of nicotine dependence
CPT/HCPCS: 36415; 71045; 80053; 80320; 83735; 84443; 84484; 85025; 85379; 85610; 96361; 96365; 99284; G0480; J3475